=== PATIENT | female | born 1945 | race Caucasian/White ===

== ENCOUNTER → 2017-08-05 | Day surgery (SDC) | payer MEDICARE ==
[~2017-08-05] MED LIST: AMLODIPINE BESYL5 MG PO; CRESTOR10 MG; FENTANYL CITRATE/PF 100MCG/2 ML INJ ONE; MELOXICAM7.5 MG PO; MIDAZOLAM HCL 2 MG/2 ML VIAL ONE
--- OUTSIDE RECORDS SUMMARY | 2017-08-05 11:38 | XMS REPORT ---
Author [facility] Address Unknown Phone Unavailable Care Team Providers Care Back Tender Insulation Board Name Role Phone CHRISTIE LESLIE Unavailable Unavailable Problems This patient has no known problems. Allergies, Adverse Reactions, Alerts This patient has no known allergies or adverse reactions. Medications This patient has no known medications. Results Test Description Test Time Test Comments Text Results Atomic Results Result Comments MAMMOGRAPHY DIGITAL SCR BILAT [place] [address] Patient Name: MIRNA TORRES MR #: [id number] : 1945 Age/Sex: 71/F Req #: [id number] [facility] Physician: Ordered by: CHRISTIE LESLIE MD Report #: [id number] Location: MAMMO Room/Bed: Procedure: [id number] MG/MAMMOGRAPHY DIGITAL SCR BILAT Exam Date: Exam Time: 1020 REPORT STATUS: Signed #[id number] - MGSCRBIL #BILATERAL DIGITAL SCREENING MAMMOGRAM WITH CAD : 03/05/2017 CLINICAL: Routine screening. Comparison is made to exams dated: 06/06/2016 mammogram, 02/16/2016 mammogram - [facility] and 11/15/2013 mammogram - [facility]. Current study contains 4 films. There are scattered fibroglandular elements in both breasts. Current study was also evaluated with a Computer Aided Detection (CAD) system. There are benign vascular calcifications in the left breast. No significant masses, calcifications, or other findings are seen in either breast. There has been no significant interval change. IMPRESSION: BENIGN There is no mammographic evidence of malignancy. A 1 year screening mammogram is recommended. The patient will be notified by letter of the results. Krysta godfrey/neftali:2016 10:23:19 Directional Drill Operator: Taylor GILMORE(R)(M), [facility] letter sent: Compared to Prior B9 Mammogram BI- RADS: 2 Benign Dictated By: KRYSTA RODRIGUEZ DO 1023 Transcribed By: NEFTALI on 03/21/17 1023 COPY TO: CHRISTIE LESLIE MD
--- OUTSIDE RECORDS SUMMARY | 2017-08-05 11:38 | XMS REPORT | Clinical Summary ---
Author Author [facility] Address Unknown Phone Unavailable Care Team Providers Care Clinical Case Manager Name Role Phone Gayla Morataya MD PCP Allergies Active Allergy Reactions Severity Noted Date Comments Penicillin G Rash Low 06/14/2016 Current Medications Prescription Sig. Disp. Refills Start End Date Status Date amLODIPine (NORVASC) 5 mg Take 5 mg by mouth daily. Active tablet rosuvastatin (CRESTOR) 10 Take 10 mg by mouth Active MG tablet nightly. OMEGA-3 FATTY ACIDS (FISH Take 1 capsule by mouth Active OIL CONCENTRATE ORAL) daily. CHOLECALCIFEROL, VITAMIN Take by mouth daily. Active D3, (VITAMIN D3 ORAL) VITAMIN E ACETATE Take by mouth daily. Active (VITAMIN E ORAL) beta carotene 32064 UNIT Take 25,000 Units by Active capsule mouth daily. aspirin (ECOTRIN) 81 MG Take 81 mg by mouth Active enteric coated tablet daily. albuterol (PROVENTIL) 2.5 Take 2.5 mg by Active mg /3 mL (0.083 %) nebulization every 6 nebulizer solution (six) hours as needed for wheezing. Active Problems Not on file Social History Tobacco Use Types Packs/Day Years Used Date Current Every Day Smoker Cigarettes Comments: 5 cig per day / smoked since 13 years old Alcohol Use Drinks/Week oz/Week Comments No treated with alcoholism in the past Sex Assigned at Date Recorded Not on file Last Filed Vital Signs Not on file Plan of Treatment Health Maintenance Due Date Last Done Comments COLONOSCOPY 09/15/1993 MAMMOGRAM 09/15/1993 SHINGRIX VACCINE (#1) 09/15/1993 ZOSTER VACCINE 2003 PNEUMOCOCCAL 09/15/2008 POLYSACCHARIDE VACCINE AGE 65 AND OVER PNEUMOCOCCAL-13 09/15/2008 INFLUENZA VACCINE 11/05/2017 Results Not on fileafter 08/04/2016 Insurance Payer Benefit Subscriber ID Type Phone Address Plan / Group AETNA MEDICARE AETNA xxxxxxxx HMO MEDICARE HMO/PPO [facility]
== END | disposition home or self-care (01) ==
LOC: OR 11:36
PROVIDERS: ATTEND Ophthalmology
DX: H25.11 Age-related nuclear cataract, right eye (principal); I10 Essential (primary) hypertension; J44.9 Chronic obstructive pulmonary disease, unspecified; E78.5 Hyperlipidemia, unspecified; R73.03 Prediabetes; F17.210 Nicotine dependence, cigarettes, uncomplicated; Z88.0 Allergy status to penicillin
CPT/HCPCS: 66984; J2250

== ENCOUNTER → 2017-08-19 | Day surgery (SDC) | payer MEDICARE ==
[~2017-08-19] MED LIST changes: +OR PHACO EYE KIT ONE; +PREOP PHACO EYE KIT ONE
--- OUTSIDE RECORDS SUMMARY | 2017-08-19 12:57 | XMS REPORT | Clinical Summary ---
Author Author [facility] Address Unknown Phone Unavailable Care Team Providers Care Conditioner Tumbler Operator Name Role Phone Gayla Morataya MD PCP [...] daily. Active (VITAMIN E ORAL) beta carotene 59044 UNIT Take 25,000 Units by Active capsule [...] INFLUENZA VACCINE 11/05/2017 Results Not on fileafter 08/18/2016 Insurance Payer Benefit Subscriber ID Type Phone Address Plan / Group AETNA MEDICARE AETNA xxxxxxxx HMO MEDICARE HMO/PPO [facility]
== END | disposition home or self-care (01) ==
LOC: OR 12:55
PROVIDERS: ATTEND Ophthalmology
DX: H25.12 Age-related nuclear cataract, left eye (principal); I10 Essential (primary) hypertension; E78.5 Hyperlipidemia, unspecified; J44.9 Chronic obstructive pulmonary disease, unspecified; K21.9 Gastro-esophageal reflux disease without esophagitis; F17.200 Nicotine dependence, unspecified, uncomplicated; Z88.0 Allergy status to penicillin
CPT/HCPCS: 66984; J2250; V2632

== ENCOUNTER → 2017-12-17 | Day surgery (SDC) | payer MEDICARE, MEDICAID ==
[2017-12-15 10:44] LABS: BASOPHILS # (AUTO) 0.1 (0.0-0.1); BASOPHILS % 0.9 % (0.0-1.0); EOSINOPHILS # (AUTO) 0.1 (0.0-0.4); EOSINOPHILS % 2.1 % (0.0-6.0); HEMATOCRIT 40.6 % (34.2-44.1); HEMOGLOBIN 13.5 g/dL (12.0-16.0); LYMPHOCYTES # (AUTO) 2.9 (1.0-3.2); LYMPHOCYTES % 43.4 % (18.0-39.1); MEAN CORPUSCULAR HEMOGLOBIN 33.8 pg (28-32); MEAN CORPUSCULAR HGB CONC 33.3 g/dL (31-35); MEAN CORPUSCULAR VOLUME 101.5 fL (81-99); MONOCYTES # (AUTO) 0.6 (0.2-0.8); NEUTROPHILS % 44.4 % (38.7-80.0); PLATELET COUNT 200 x10e3/uL (140-360); RED CELL DISTRIBUTION WIDTH 14.2 % (11.7-14.4)
[~2017-12-17] MED LIST changes: +ARICEPT5 MG PO; +ASPIR 8181 MG PO; +HYOSCYAMINE SULFATE 0.5 MG/ML AMP ONE; +LIDOCAINE HCL 2% LOCAL INJ 5 ML SDV VIAL INJ ONE; +OMEGA 3 1,0001 EACH PO; -OR PHACO EYE KIT ONE; +PHENYLEPHRINE HCL 1% 10 MG/ML VIAL ONE; +POLYETHYLENE GL17 GM PO; -PREOP PHACO EYE KIT ONE; +PROPOFOL IV EMULSION 10 MG/ML 50 ML VIAL ONE; +VIT A PO; +VIT D3 PO; +VIT E PO
[2017-12-17 13:30] VITALS: BP 105/45
--- NOTE | 2017-12-17 14:20 | Operative Report ---
DATE OF PROCEDURE: December 17, 2017 REFERRING PHYSICIAN: Dr. Gary Leslie. PROCEDURE PERFORMED: Esophagogastroduodenoscopy with biopsies and colonoscopy with polypectomy. INDICATIONS FOR EGD: Heartburn, indigestion. INDICATIONS FOR COLONOSCOPY: Colorectal cancer screening. MEDICATIONS: Patient was done under MAC. Please see anesthesiologist's note. PROCEDURE: With patient in left lateral decubitus position, flexible fiberoptic Olympus gastroscope was introduced into the esophagus under direct visualization without any difficulty. There were some patchy erythema noted in the distal esophagus. The scope was then advanced with ease into the stomach. The mucosa overlying the antrum and the body revealed some patchy areas of erythema and [id number]-[id number]-[id number] edema and biopsies were obtained and sent to stain for H. pylori. The pylorus was of normal contour and shape, was intubated with ease and the scope was advanced all the way to the second portion of the duodenum. The scope was then withdrawn slowly. Mucosa overlying the proximal second portion and the duodenal bulb appeared to be within normal limits. The scope was then withdrawn back into the stomach and retroflexed. The mucosa overlying the fundus and the cardia appeared to be within normal limits. The scope was then straightened out. It was subsequently withdrawn. Patient tolerated the procedure well. IMPRESSION 1. Distal esophagitis. 2. Gastritis, biopsied. Biopsies sent to stain for H. pylori. PLAN: Follow up histology. Initiate Protonix 40 mg 1 p.o. q.a.m. a.c. Patient was then turned around and after adequate lubrication of the anal canal, a flexible fiberoptic Olympus colonoscope was inserted into the rectum with ease and advanced all the way to the cecum. It was then withdrawn slowly. Mucosa overlying the cecum, ascending colon and transverse colon appeared to be within normal limits. Some diverticular disease was noted in the distal descending and the sigmoid colon. One polyp was hot biopsied from the rectum. The scope was then retroflexed into the distal rectum and small internal hemorrhoids were noted, none of which was actively bleeding. The scope was then straightened out. It was subsequently withdrawn. Patient tolerated the procedure well. IMPRESSION 1. Diverticulosis. 2. Rectal polyp, hot biopsied. 3. Internal hemorrhoids, none actively bleeding. PLAN: Follow up histology. Initiate high-fiber, low-fat diet. Initiate high-fiber supplement. Patient will need a followup colonoscopy in 5 years. Job#: [id number] ERICKA cc:DR. GARY LESLIE
== END | disposition home or self-care (01) ==
LOC: OR 10:19
PROVIDERS: ATTEND Internal Medicine Gastroenterology
DX: Z12.11 Encounter for screening for malignant neoplasm of colon (principal); K62.1 Rectal polyp; K29.50 Unspecified chronic gastritis without bleeding; B96.81 Helicobacter pylori [H. pylori] as the cause of diseases classified elsewhere; K20.9 Esophagitis, unspecified; K57.30 Diverticulosis of large intestine without perforation or abscess without bleeding; K64.8 Other hemorrhoids; J44.9 Chronic obstructive pulmonary disease, unspecified; I10 Essential (primary) hypertension; E11.9 Type 2 diabetes mellitus without complications; M19.90 Unspecified osteoarthritis, unspecified site; E78.00 Pure hypercholesterolemia, unspecified; F17.210 Nicotine dependence, cigarettes, uncomplicated; Z01.810 Encounter for preprocedural cardiovascular examination; Z01.812 Encounter for preprocedural laboratory examination; Z88.0 Allergy status to penicillin; Z88.9 Allergy status to unspecified drugs, medicaments and biological substances; Z79.82 Long term (current) use of aspirin
CPT/HCPCS: 36415; 43239; 45384; 85025; 88305; 88312; 93005; J1980; J2001; J2250; J2370; 45378

== ENCOUNTER → 2018-03-24 | Outpatient (CLI) | payer MEDICARE ==
[~2018-03-24] MED LIST changes: -FENTANYL CITRATE/PF 100MCG/2 ML INJ ONE; -HYOSCYAMINE SULFATE 0.5 MG/ML AMP ONE; -LIDOCAINE HCL 2% LOCAL INJ 5 ML SDV VIAL INJ ONE; -MIDAZOLAM HCL 2 MG/2 ML VIAL ONE; -PHENYLEPHRINE HCL 1% 10 MG/ML VIAL ONE; -PROPOFOL IV EMULSION 10 MG/ML 50 ML VIAL ONE
--- NOTE | 2018-03-27 16:23 | Diagnostic Imaging Report ---
#[id number] - MGSCRBIL #BILATERAL DIGITAL SCREENING MAMMOGRAM WITH CAD: 03/24/2018 CLINICAL: Routine screening. Comparison is made to exam dated: 03/05/2017 mammogram - [facility]. Current study contains 4 films. There are scattered fibroglandular elements in both breasts. Current study was also evaluated with a Computer Aided Detection (CAD) system. There are benign vascular calcifications in the left breast. No significant masses, calcifications, or other findings are seen in either breast. There has been no significant interval change. IMPRESSION: BENIGN There is no mammographic evidence of malignancy. A 1 year screening mammogram is recommended. The patient will be notified by letter of the results. Aiden godfrey/jaiden:03/27/2018 10:32:01 Diesel Power Shovel Operator: Zoey ESPINOZA)(M), [facility] letter sent: Compared to Prior B9 Mammogram BI-RADS: 2 Benign
== END ==
LOC: MAMMO 10:00
PROVIDERS: ATTEND Internal Medicine
DX: Z12.31 Encounter for screening mammogram for malignant neoplasm of breast (principal)
CPT/HCPCS: 77067

== ENCOUNTER → 2019-02-02 | Outpatient (CLI) | payer MEDICARE ==
--- NOTE | 2019-02-02 14:32 | Diagnostic Imaging Report ---
EXAM: CT Chest WITHOUT intravenous contrast 02/02/2019 10:04 AM INDICATION: High risk lung cancer screening, smoking history COMPARISON: None TECHNIQUE: Chest was scanned utilizing a multidetector helical scanner from the lung apex through the level of the adrenal glands without administration of IV contrast. Coronal and sagittal reformations were obtained. Low-dose protocol was performed. IV CONTRAST: None RADIATION DOSE: Total DLP: 146.8 mGy*cm. Dose modulation, iterative reconstruction, and/or weight based adjustment of the mA/kV was utilized to reduce the radiation dose to as low as reasonably achievable. COMPLICATIONS: None FINDINGS: LINES/ TUBES: None. LUNGS AND AIRWAYS: The central airways are patent. No focal consolidation. No pulmonary edema. Mild bilateral centrilobular and paraseptal emphysema. Bilateral pulmonary micronodules, for example in the left upper lobe measuring 3 mm (series 3 image 26 and 29) and subpleural right upper lobe (series 3 image 18). Mild bibasilar dependent subsegmental atelectasis. PLEURA: The pleural spaces are clear. HEART AND MEDIASTINUM: The thyroid gland is normal. No mediastinal, hilar or axillary lymphadenopathy. The heart is normal in size.. There is no pericardial effusion. Mild atherosclerotic coronary artery calcifications and mild atherosclerotic calcifications of the thoracic aorta and great vessels. UPPER ABDOMEN: Limited noncontrast images of the upper abdomen demonstrate no focal abnormality of the partially visualized liver, spleen, pancreas, adrenals, and upper most kidneys. BONES: No acute osseous injury. Mild degenerative changes of the visualized spine. Grade 1 retrolisthesis at T12-L1 and L1-2. SOFT TISSUES: Unremarkable. IMPRESSION: Bilateral centrilobular and paraseptal emphysema. Bilateral pulmonary micronodules measuring up to 3 mm. In a low risk patient, no further imaging follow-up is necessary. In a high-risk patient, follow-up chest CT is optional at 12 months per Fleischner society guidelines 2017. Atherosclerotic arterial calcifications including of the coronary arteries. Signed by: Remi Remy MD on 02/02/2019 2:29 PM
== END ==
LOC: CT 09:51
PROVIDERS: ATTEND Internal Medicine
DX: Z12.2 Encounter for screening for malignant neoplasm of respiratory organs (principal); J44.9 Chronic obstructive pulmonary disease, unspecified; F17.210 Nicotine dependence, cigarettes, uncomplicated
CPT/HCPCS: 71250

== ENCOUNTER → 2019-12-15 | Outpatient (CLI) | payer MEDICARE | LOC: MAMMO 13:31 | PROVIDERS: ATTEND Internal Medicine | DX: Z12.31 Encounter for screening mammogram for malignant neoplasm of breast (principal) | CPT/HCPCS: 77067 ==